=== PATIENT | male | born 2005 | race Two or more races ===

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

== ENCOUNTER 2024-08-18 18:31 | Emergency (ER) | payer MEDICAID ==
[~2024-08-18] VITALS: Ht 180.3 cm; Wt 167.0 kg
[~2024-08-18 18:31] MED LIST: CYAN100061 PO; ERGO1CAP23 PO
--- NOTE | 2024-08-18 18:50 | ED.PDOC ---
HPI Comments 19-year-old male who came to ER for chest pains. Patient does have history of hypertension. States last night he had left-sided chest pains, described as squeezing, lasted 3 seconds before resolving spontaneously. For entire day today, episodes of sharp, intermittent, left-sided and midsternal chest pains associated with numbness of both upper extremities, the left arm worse than the right. Blood pressure here upon arrival was 146/80 mm Hg Chief Complaint: Chest Pain Time Seen by MD: 18:49 Primary Care Provider: AYSHA Reviewed Notes: Nurses Notes Allergies: Coded Allergies: NO KNOWN ALLERGIES (Unverified , 08/16/19) Home Meds Active Scripts Cyanocobalamin (B-12) 1,000 Mcg Tab, 1000 MCG PO QAM for 30 Days, #30 TAB Prov:MIGUEL OLMSTEAD MD 05/08/24 Ergocalciferol (VITAMIN D 52756 UNIT) 50,000 [place], [address] UNIT PO Q7D for 12 Days, #12 CAP Prov:MIGUEL OLMSTEAD MD 05/08/24 Information Source: Patient Mode of Arrival: Ambulatory Severity: Moderate Timing: Hours Duration: Intermittent Prehospital treatment: None Location: Chest (L) Radiation: Arm (L) Quality: Sharp, Squeezing Onset: With Light Exertion Cardiac Risk Factors: HTN History of: None Modifying Factors: Nothing Associated Signs and Symptoms: None Past Medical History PAST MEDICAL HISTORY: HTN Surgical History: Denies all surgeries Family History Family History: Family hx of HTN Social History Smoker: Non-Smoker Alcohol: Occasionally Drugs: Denies Drug Use Lives In: Home Constitutional: denies: chills, diaphoresis, fatigue, fever, malaise, sweats, weakness, others EENTM: denies: blurred vision, double vision, ear bleeding, ear discharge, ear drainage, ear pain, ear ringing, eye pain, eye redness, hearing loss, mouth pain, mouth swelling, nasal discharge, nose bleeding, nose congestion, nose pain, photophobia, tearing, throat pain, throat swelling, voice changes, others Respiratory: denies: cough, hemoptysis, orthopnea, SOB at rest, shortness of breath, SOB with excertion, stridor, wheezing, others Cardiovascular: reports: chest pain, left arm pain; denies: dizzy spells, diaphoresis, Dyspnea on exertion, edema, irregular heart beat, lightheadedness, palpitations, PND, syncope, others Gastrointestinal: denies: abdomen distended, abdominal pain, blood streaked bowels, constipated, diarrhea, dysphagia, difficulty swallowing, hematemesis, melena, nausea, poor appetite, poor fluid intake, rectal bleeding, rectal pain, vomiting, others Genitourinary: denies: burning, dysuria, flank pain, frequency, hematuria, incontinence, penile discharge, penile sore, pain, testicle pain, testicle swelling, urgency, others Neurological: denies: dizziness, fainting, headache, left sided numbness, left sided weakness, numbness, paresthesia, pre-existing deficit, right sided numbness, right sided weakness, seizure, speech problems, tingling, tremors, weakness, others Musculoskeletal: denies: back pain, gout, joint pain, joint swelling, muscle pain, muscle stiffness, neck pain, others Integumetry: denies: bruises, change in color, change in hair/nails, dryness, laceration, lesions, lumps, rash, wounds, others Allergic/Immunocompromised: denies: Difficulty Healing, Frequent Infections, Hives, Itching, others Hematologic/Lymphatic: denies: anemia, blood clots, easy bleeding, easy bruising, swollen glands, others Endocrine: denies: excessive hunger, excessive sweating, excessive thirst, excessive urination, flushing, intolerance to cold, intolerance to heat, unexplained weight gain, unexplained weight loss, others Psychiatric: denies: anxiety, bipolar disorder, depression, hopeless, panic disorder, schizophrenia, sleepless, suicidal, others Physical Exam General Appearance: No Apparent Distress, Normal HEENT: Normal ENT Inspection, Pharynx Normal, TMs Normal Neck: Full Range of Motion, Non-Tender, Normal, Normal Inspection Respiratory: Chest Non-Tender, Lungs Clear, No Accessory Muscle Use, No Respiratory Distress, Normal Breath Sounds Cardiovascular: No Edema, No JVD, No Murmur, No Gallop, Normal Peripheral Pulses, Regular Rate/Rhythm Breast Exam: Deferred Gastrointestinal: No Organomegaly, Non Tender, No Pulsatile Mass, Normal Bowel Sounds, Soft Genitalia: Deferred Pelvic: Deferred Rectal: Deferred Extremities: No calf tenderness, Normal capillary refill, Normal inspection, Normal range of motion, Non-tender, No pedal edema Musculoskeletal : Apperance: Normal 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 Was a procedure done?: No CP Differential Dx Differential Diagnosis: Angina, Anxiety / Panic Attack Differential Diagnosis: Angina, Chest Wall Pain, Costochondritis, Esophageal reflux/spasm, Gastritis, Myocardial Infarction, Pneumonia X-Ray, Labs, Meds, VS Vital Signs Date Time Temp Pulse Resp B/P (MAP) Pulse Ox O2 Delivery O2 Flow Rate FiO2 08/18/24 21:26 71 20 99 Room Air 08/18/24 21: 98.7 71 20 146/84 (104) 99 98.7 08/18/24 18:36 82 08/18/24 18:31 97.4 81 20 145/80 (101) 96 Lab Test 08/18/24 19:15 Range/Units White Blood Count 8.8 4.4-10.8 10^3/uL Red Blood Count 5.53 4.5-5.90 10^6/uL Hemoglobin 16.8 13.5-17.5 g/dL Hematocrit 48.8 41.0-53.0 % Mean Corpuscular Volume 88.2 80.0-100.0 fL Mean Corpuscular Hemoglobin 30.4 28.0-32.0 pg Mean Corpuscular Hemoglobin Concent 34.4 32.0-36.0 g/dL Red Cell Distribution Width 13.3 11.8-14.3 % Platelet Count 361 140-450 10^3/uL Mean Platelet Volume 8.0 6.9-10.8 fL Neutrophils (%) (Auto) 74.7 37.0-80.0 % Lymphocytes (%) (Auto) 18.2 10.0-50.0 % Monocytes (%) (Auto) 5.6 0.0-12.0 % Eosinophils (%) (Auto) 0.9 0.0-7.0 % Basophils (%) (Auto) 0.6 0.0-2.0 % Neutrophils # (Auto) 6.6 1.6-8.6 10 ^3/uL Lymphocytes # (Auto) 1.6 0.4-5.4 10 ^3/uL Monocytes # (Auto) 0.5 0-1.3 10 ^3/uL Eosinophils # (Auto) 0.1 0-0.8 10 ^3/uL Basophils # (Auto) 0 0-0.2 10 ^3/uL Nucleated Red Blood Cells 0.3 % Sodium Level 140 136-145 mmol/L Potassium Level 4.4 3.5-5.1 mmol/L Chloride Level 105 98-107 mmol/L Carbon Dioxide Level 26 20-31 mmol/L Anion Gap 9 5-15 Blood Urea Nitrogen 11 9-23 mg/dL Creatinine 0.80 0.700-1.30 mg/dL Glomerular Filtration Rate Calc 129 >90 mL/min BUN/Creatinine Ratio 13.8 10.0-20.0 Serum Glucose 88 74-106 mg/dL Calcium Level 10.3 8.7-10.4 mg/dL Magnesium Level 2.1 1.6-2.6 mg/dL Total Bilirubin 0.8 0.2-1.0 mg/dL Aspartate Amino Transferase (AST) 23 13-40 U/L Alanine Aminotransferase (ALT) 46 H 7-40 U/L Alkaline Phosphatase 71 46-116 U/L Troponin I High Sensitivity < 3 L </=54 ng/L Total Protein 7.7 5.7-8.2 g/dL Albumin 4.9 H 3.2-4.8 g/dL Time of 1ST Reevaluation: 18:45 Reevaluation 1ST: Unchanged Time of 2ND Reevaluation: 20:00 Reevaluation 2ND: Improved Patient Education/Counseling: Diagnosis, Treatment Family Education/Counseling: No Family Present Departure 1 Departure Time of Disposition: 20:30 Impression: Primary Impression: Atypical chest pain Disposition: 01 HOME / SELF CARE / HOMELESS Condition: Stable Discharged With: Relative Critical Care Note Critical Care Time?: No Stability Stability form required: No Heart Score Heart Score: Heart Score Response (Comments) Value History Slightly Suspicious 0 EKG Normal 0 Age <45 0 Risk Factors 1 or 2 risk factors 1 Troponin Normal limit 0 Total 1 I personally scribed for NI PABON MD ([email or web address]) on 08/18/24 at 18:50. Electronically submitted by Gary Goss ([email or web address]). NI PABON MD Aug 18, 2024 18:50
[2024-08-18 19:32] LABS: Basophils # (auto) 0 10 ^3/uL (0-0.2); Basophils % (auto) 0.6 % (0.0-2.0); Eosinophils # (auto) 0.1 10 ^3/uL (0-0.8); Eosinophils % (auto) 0.9 % (0.0-7.0); Hematocrit 48.8 % (41.0-53.0); Hemoglobin 16.8 g/dL (13.5-17.5); Lymphocytes # (auto) 1.6 10 ^3/uL (0.4-5.4); Lymphocytes % (auto) 18.2 % (10.0-50.0); Mean Corpuscular Hemoglobin 30.4 pg (28.0-32.0); Mean Corpuscular Hgb Conc. 34.4 g/dL (32.0-36.0); Mean Corpuscular Volume 88.2 fL (80.0-100.0); Monocytes # (auto) 0.5 10 ^3/uL (0-1.3); Monocytes % (auto) 5.6 % (0.0-12.0); Neutrophils # (auto) 6.6 10 ^3/uL (1.6-8.6); Neutrophils % (auto) 74.7 % (37.0-80.0); Nucleated Red Blood Cells % 0.3 %; Platelet Count (auto) 361 10^3/uL (140-450); Red Blood Cells 5.53 10^6/uL (4.5-5.90); Red Cell Distribution Width 13.3 % (11.8-14.3); White Blood Cell 8.8 10^3/uL (4.4-10.8)
[2024-08-18 19:54] LABS: Alkaline Phosphatase 71 U/L (46-116); Anion Gap 9 (5-15); Aspartate Aminotransferase 23 U/L (13-40); BUN/Creatinine Ratio 13.8 (10.0-20.0); Bilirubin, Total 0.8 mg/dL (0.2-1.0); Blood Urea Nitrogen 11 mg/dL (9-23); Calcium 10.3 mg/dL (8.7-10.4); Carbon Dioxide 26 mmol/L (20-31); Chloride 105 mmol/L (98-107); Glucose 88 mg/dL (74-106); Magnesium 2.1 mg/dL (1.6-2.6); Potassium 4.4 mmol/L (3.5-5.1); Sodium 140 mmol/L (136-145); Total Protein 7.7 g/dL (5.7-8.2)
[2024-08-18 19:55] LABS: Alanine Aminotransferase 46 U/L (7-40); Albumin 4.9 g/dL (3.2-4.8)
[2024-08-18 21:26] VITALS: BP 146/84; PULSE 71; RESP 20; TEMP 98.7; O2SAT 99
--- NOTE | 2024-08-21 05:12 | ECG ---
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
== END 2024-08-18 21:30 | disposition home or self-care (01) ==
LOC: ER 18:35
DX: R07.89 Other chest pain (principal); I10 Essential (primary) hypertension; Z79.899 Other long term (current) drug therapy
CPT/HCPCS: 36415; 80053; 83735; 84484; 85025; 93005

== ENCOUNTER 2024-09-05 16:36 | Emergency (ER) | payer MEDICAID ==
[~2024-09-05] VITALS: Ht 180.3 cm; Wt 165.0 kg
[2024-09-05 16:50] VITALS: BP 137/91; PULSE 89; RESP 18; O2SAT 99
== END 2024-09-05 20:10 | disposition left against medical advice (07) ==
LOC: ER 16:40
DX: G47.00 Insomnia, unspecified (principal); Z53.21 Procedure and treatment not carried out due to patient leaving prior to being seen by health care provider

== ENCOUNTER 2025-01-12 21:20 | Emergency (ER) | payer MEDICAID ==
[~2025-01-12] VITALS: Ht 180.3 cm; Wt 168.0 kg
[2025-01-12 22:14] VITALS: BP 135/76; PULSE 82; RESP 20; TEMP 98; O2SAT 97
[2025-01-12] MEDS: TETRACAINE HCL 0.5% OPTH(EYE) SOLN 4ML RIGHTEYE ONE (23:46)
[2025-01-12] MEDS: FLUORESCEIN SOD OPTH TEST STRIP RIGHTEYE ONE (23:46)
--- NOTE | 2025-01-12 23:46 | ED.PDOC ---
Eye-HPI HPI Comments PT CAME TO ER WITH CC OF WOOD CHIP IN THE RIGHT EYE. PT STATES THAT HE WENT TO THE [employer] TO GET ICE WHEN AN EMPLOYEE DROPPED A BOX OF WOOD CHIPS AND IT FLEW IN HIS FACE. PT RIGHT EYE APPEARS TO BE RED AND IRRITATED, PT DENIES ANY LOSS OF VISION. PT REPORTS BLURRY VISION OUT OF THE RIGHT EYE Chief Complaint: Foreign Body Time Seen by MD: 21:34 Primary Care Provider: SUZETTE Reviewed Notes: Nurses Notes, Medications, Allergies Allergies: Coded Allergies: NO KNOWN ALLERGIES (Unverified , 08/16/19) Home Meds Active Scripts Moxifloxacin Hydrochloride (Moxifloxacin) 0.5 % Albin, 1 DROP RIGHTEYE TID for 7 Days, #30 ML Prov:SEDRICK ESTRADA 01/13/25 Cyanocobalamin (B-12) 1,000 Mcg Tab, 1000 MCG PO QAM for 30 Days, #30 TAB Prov:MIGUEL OLMSTEAD MD 05/08/24 Ergocalciferol (VITAMIN D 39252 UNIT) 50,000 [place], [address] UNIT PO Q7D for 12 Days, #12 CAP Prov:MIGUEL OLMSTEAD MD 05/08/24 Mode of Arrival: Ambulatory Past Medical History PAST MEDICAL HISTORY: HTN Surgical History: Denies all surgeries Family History Family History: Reviewed,noncontributory to illness, Family hx of HTN Social History Smoker: Non-Smoker Alcohol: Occasionally Drugs: Denies Drug Use Lives In: Home Constitutional: denies: chills, diaphoresis, fatigue, fever, malaise, sweats, weakness, others EENTM: reports: eye pain, eye redness; denies: blurred vision, double vision, ear bleeding, ear discharge, ear drainage, ear pain, ear ringing, hearing loss, mouth pain, mouth swelling, nasal discharge, nose bleeding, nose congestion, nos e pain, photophobia, tearing, throat pain, throat swelling, voice changes, others Respiratory: denies: cough, hemoptysis, orthopnea, SOB at rest, shortness of breath, SOB with excertion, stridor, wheezing, others Cardiovascular: denies: chest pain, dizzy spells, diaphoresis, Dyspnea on exertion, edema, irregular heart beat, left arm pain, lightheadedness, palpitations, PND, syncope, others Gastrointestinal: denies: abdomen distended, abdominal pain, blood streaked bowels, constipated, diarrhea, dysphagia, difficulty swallowing, hematemesis, melena, nausea, poor appetite, poor fluid intake, rectal bleeding, rectal pain, vomiting, others Genitourinary: denies: burning, dysuria, flank pain, frequency, hematuria, incontinence, penile discharge, penile sore, pain, testicle pain, testicle swelling, urgency, others Neurological: denies: dizziness, fainting, headache, left sided numbness, left sided weakness, numbness, paresthesia, pre-existing deficit, right sided numbness, right sided weakness, seizure, speech problems, tingling, tremors, weakness, others Musculoskeletal: denies: back pain, gout, joint pain, joint swelling, muscle pain, muscle stiffness, neck pain, others Integumetry: denies: bruises, change in color, change in hair/nails, dryness, laceration, lesions, lumps, rash, wounds, others Allergic/Immunocompromised: denies: Difficulty Healing, Frequent Infections, Hives, Itching, others Hematologic/Lymphatic: denies: anemia, blood clots, easy bleeding, easy bruising, swollen glands, others Endocrine: denies: excessive hunger, excessive sweating, excessive thirst, excessive urination, flushing, intolerance to cold, intolerance to heat, unexplained weight gain, unexplained weight loss, others Psychiatric: denies: anxiety, bipolar disorder, depression, hopeless, panic disorder, schizophrenia, sleepless, suicidal, others Physical Exam General Appearance: No Apparent Distress, Normal HEENT: Pharynx Normal, TMs Normal, Other (RIGHT EYE SCLERAE HYPEREMIA WITH CLEAR DRAINAGE) Neck: Full Range of Motion, Non-Tender Respiratory: Lungs Clear, No Respiratory Distress, Normal Breath Sounds Cardiovascular: No Murmur, Normal Peripheral Pulses, Regular Rate/Rhythm Breast Exam: Deferred Gastrointestinal: Non Tender, Soft Genitalia: Deferred Pelvic: Deferred Rectal: Deferred Extremities: Normal capillary refill, Normal inspection, Normal range of motion, Non-tender, No pedal edema Musculoskeletal : Apperance: Normal 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 Was a procedure done?: Yes Sedation Sedation?: No Informed consent obtained: Yes Other Procedure Procedure WOOD'S LAMP EXAM RIGHT EYE Indication POSSIBLE FOREIGN BODY/ABRASION/ULCERATION Anesthetic TETRACAINE 0.1% Prep FLUORESCEIN Success NO NOTED ULCERATION, FOREIGN BODY, LACERATION NOTED SCLERAE ABRASION AT THE 7 O'CLOCK POSITION PATIENT TOLERATED WELL FLUSHED REPORTS IMPROVEMENT EENT DIFF Eye: Corneal Ulceration, Foreign Body-Conjunctiva, Foreign Body-Intraocular, Foreign Body-Lid, Globe Rupture X-Ray, Labs, Meds, VS Vital Signs Date Time Temp Pulse Resp B/P (MAP) Pulse Ox O2 Delivery O2 Flow Rate FiO2 01/12/25 22:14 98.0 82 20 135/76 (95) 97 98.0 01/12/25 22:14 98.0 20 135/76 (95) 97 98.0 01/12/25 22:14 Room Air Current Medications Medications (Trade) Dose Ordered Sig/Dontrell Route Start Time Stop Time Status Last Admin Tetracaine HCl (Tetracaine 0.5% Opth Soln) 1 drop ONCE ONCE RIGHTEYE 01/12/25 23:45 01/12/25 23:46 DC 01/12/25 23:46 Fluorescein Sodium (Ful-Roseann) 1 mg ONCE ONCE RIGHTEYE 01/12/25 23:45 01/12/25 23:46 DC 01/12/25 23:46 Erythromycin 1 applic ONCE ONCE OP 01/13/25 00:00 01/13/25 00:01 DC 01/13/25 00:04 X-Ray, Labs, Meds, VS Comment SEE PROCEDURE NOTE SCRIPT TRIAL OF ANTIBIOTIC EYEDROPS ADVISED TO TAKE MEDICATION PRESCRIBED SIDE EFFECTS DISCUSSED. PATIENT GIVEN 1 DOSE OF ERYTHROMYCIN RIGHT EYE. ADVISED TO FOLLOW UP WITH HIS PCP IN 2 DAYS CONSIDER REFERRAL TO OPHTHALMOLOGY IF SYMPTOMS PERSIST. ER RETURN PRECAUTIONS GIVEN PATIENT INDICATES UNDERSTANDING AND AGREES WITH DISCHARGE PLAN OF CARE. Time of 1ST Reevaluation: 21:35 Reevaluation 1ST: Unchanged Time of 2ND Reevaluation: 23:59 Reevaluation 2ND: Improved Patient Education/Counseling: Diagnosis, Treatment, Prognosis, Need For Follow Up Family Education/Counseling: No Family Present Departure 1 Departure Time of Disposition: 23:59 Impression: Primary Impression: Abrasion of sclera of right eye Qualified Codes: S05.8X1A - Other injuries of right eye and orbit, initial encounter Disposition: HOME / SELF CARE / HOMELESS Condition: Stable e-Prescriptions Moxifloxacin Hydrochloride (Moxifloxacin) 0.5 % Albin 1 DROP RIGHTEYE TID for 7 Days, #30 ML Prov: SEDRICK ESTRADA 01/13/25 Discharged With: Self Critical Care Note Critical Care Time?: No Stability Stability form required: SEDRICK Hammond January 12, 2025 23:45
[2025-01-13] MEDS ORDERED: MOXI0.5D9 RIGHTEYE (00:01)
[2025-01-13] MEDS: ERYTHROMY OPTH OINT 5mg/gm 1gm or 3.5gm tube OP ONE (00:04)
== END 2025-01-13 00:16 | disposition home or self-care (01) ==
LOC: ER 21:20
DX: S05.01XA Injury of conjunctiva and corneal abrasion without foreign body, right eye, initial encounter (principal); I10 Essential (primary) hypertension; X58.XXXA Exposure to other specified factors, initial encounter; Y93.89 Activity, other specified; Y92.89 Other specified places as the place of occurrence of the external cause; Y99.8 Other external cause status

== ENCOUNTER 2025-08-05 15:20 | Emergency (ER) | payer MEDICAID ==
[~2025-08-05] VITALS: Ht 180.3 cm; Wt 162.2 kg
[2025-08-05] MEDS ORDERED: METH4PAK PO (18:56)
--- NOTE | 2025-08-05 18:59 | ED.PDOC ---
SOB-HPI HPI Comments REPORTS EYE IRRITATION, HEADACHE, EAR PAIN, THROAT PAIN, "SLIPPY MEMORY" X 4 DAYS. OTHER FAMILY AT HOME IS ALSO SICK . PATIENT REPORTS POSSIBLE SHORT TERM EXPOSURE TO BLOCK MOLD WHILE DIGGING OUTSIDE. DENIES NUMBNESS, WEAKNESS, DIFFICULTY BREATHING, SHORTNESS OF BREATH, FEVER, CHILLS, NAUSEA, VOMITING OR CHEST PAIN Chief Complaint: Flu like Time Seen by MD: 18:13 Primary Care Provider: SUZETTE Ely notes: Nurses Notes, Medications, Allergies Information Source: Patient Mode of Arrival: Ambulatory Past Medical History PAST MEDICAL HISTORY: HTN Surgical History: Denies all surgeries Family History Family History: Reviewed,noncontributory to illness, Family hx of HTN Social History Smoker: Non-Smoker Alcohol: Occasionally Drugs: Denies Drug Use Lives In: Home All Other Systems: Reviewed and Negative (See HPI) Physical Exam General Appearance: No Apparent Distress, Normal HEENT: Normal ENT Inspection, Pharynx Normal, TMs Normal Neck: Full Range of Motion, Non-Tender Respiratory: Chest Non-Tender, Lungs Clear, No Accessory Muscle Use, No Respiratory Distress, Normal Breath Sounds Cardiovascular: No Edema, No JVD, No Murmur, No Gallop, Normal Peripheral Pulses, Regular Rate/Rhythm Breast Exam: Deferred Gastrointestinal: No Organomegaly, Non Tender, No Pulsatile Mass, Normal Bowel Sounds, Soft Genitalia: Deferred Pelvic: Deferred Rectal: Deferred Extremities: Normal range of motion, No pedal edema Musculoskeletal : Apperance: Normal Neurologic: Alert, No Motor Deficits, Normal Affect, Normal Mood, No Sensory Deficits Cerebellar Function: Normal Reflexes: NOT DONE Skin: Dry, Normal Color, Warm Lymphatic: No Adenopathy Was a procedure done? Was a procedure done?: No Differential Dx Differential Diagnosis: Asthma, Bronchitis, Sinusitis, Allergic Rhinitis, URI X-Ray, Labs, Meds, VS Vital Signs Date Time Temp Pulse Resp B/P (MAP) Pulse Ox O2 Delivery O2 Flow Rate FiO2 08/05/25 15:23 97.7 16 18 148/90 98 97.7 Time of 1ST Reevaluation: 18:13 Reevaluation 1ST: Unchanged Time of 2ND Reevaluation: 18:55 Reevaluation 2ND: Improved Patient Education/Counseling: Diagnosis, Treatment, Need For Follow Up Family Education/Counseling: No Family Present SEPSIS Sepsis Screen Date sepsis recognized/suspect: Aug 05, 2025 Time Sepsis recognized/suspect: 1525 Recent Procedure: No On Antibiotic Therapy: No Respiratory Rate >20: No Heart Rate >90: No Temp<36 C (96.8 F) or >38.3 C: No SBP <90 or MAP <65 mmHG: No New Acute Mental Status Change: No Is the patient on CPAP, BIPAP,: No Vital Signs Date Time Temp Pulse Resp B/P (MAP) Pulse Ox O2 Delivery O2 Flow Rate FiO2 08/05/25 15:23 97.7 16 18 148/90 98 97.7 Departure 1 Departure Time of Disposition: 18:55 Impression: Primary Impression: Suspected exposure to mold Disposition: 01 HOME / SELF CARE / HOMELESS Condition: Stable e-Prescriptions Methylprednisolone (Medrol Dosepak) 4 Mg Bari 4 MG PO UD for 6 Days, #21 TAB UAD Prov: SEDRICK ESTRADA 08/05/25 Discharged With: Self Critical Care Note Critical Care Time?: No Stability Stability form required: No Heart Score Heart Score: Heart Score Response (Comments) Value History N/A 0 EKG N/A 0 Age <45 0 Risk Factors N/A 0 Troponin N/A 0 Total 0 SEDRICK ESTRADA Aug 05, 2025 18:59
[2025-08-05 19:02] VITALS: BP 144/91; PULSE 19; RESP 19; TEMP 98.9; O2SAT 99
== END 2025-08-05 19:08 | disposition home or self-care (01) ==
LOC: ER 15:20
DX: H57.89 Other specified disorders of eye and adnexa (principal); R07.0 Pain in throat; H92.09 Otalgia, unspecified ear; R51.9 Headache, unspecified; I10 Essential (primary) hypertension